=== PATIENT | female | born 1975 | race Caucasian/White ===

== ENCOUNTER 2016-12-27 05:51 | Inpatient (IN) | payer OTHER ==
[2016-12-27] VITALS (10 sets, daily range): BP systolic 101–1225; BP diastolic 54–83
--- NOTE | 2016-12-27 11:00 | NUR ---
Pt's brother(Hunter Adkins) called in & told RN that He had to called CPS to report about his sister(Domingo Menjivar)'s drug history noted. then told RN that Pt had imprisonment for drug R/T charges,forgery etc till last October noted. CPS, Shanae Lincoln ( ) called in to talk/Ask RN about pt's status etc noted. And DR Nguyen & Dr Vogt both been reported noted.
--- NOTE | 2016-12-27 13:30 | NUR ---
Pt moved to post room, #319, via ambulation. Tolerated well.
--- NOTE | 2016-12-27 14:25 | NUR ---
CPS Imelda Santoyo, [employer] teacher( ) is here & visited Pt for about 20 Mins. And asked RN to contact CPS before DC baby noted.
--- NOTE | 2016-12-27 16:06 | NUR ---
ASSUMED CARE, ASSESSMENT COMPLETED, INFORMED HER WHY BABY HAD A URINE BAG ON, VSS, IV CHANGED TO HL
--- NOTE | 2016-12-27 18:40 | NUR ---
BABY HAS NOT BREAST FEED SINCE 1300, PT ATTEMPTED X 2, DID SKIN TO SKIN AND TRY AGAIN, BABY SLEEPY
--- NOTE | 2016-12-28 07:17 | NUR ---
Domingo has been very cuddly and tuned into baby tonight. Large nipples but baby latches well.
[2016-12-28 09:00] VITALS: BP 105/69
--- NOTE | 2016-12-28 13:29 | Provider's Discharge Care Plan ---
Problem, Goal, Plan Problem List 1. Term delivered Goals: Improved health/wellness Instructions: Take meds as directed, INGRID pack as directed control as discussed. Pelvic rest x 6 weeks.
[2016-12-28 16:00] VITALS: BP 117/75
--- NOTE | 2016-12-28 18:25 | NUR ---
Pt has DC'd @4100 noted.
--- NOTE | 2016-12-28 18:26 | NUR ---
Pt was given DC instructions & F/U infoss. indicated understood. Pt will stay as guest while her new born baby boy is staying. Currently the new born is on WADE for possible withdrawal of drugs noted.
== END 2016-12-28 18:05 | disposition home or self-care (01) | DRG 560 ==
LOC: OBC SRH 05:51 → OB SRH 06:04
PROVIDERS: ADMIT Obstetrics & Gynecology
PROC: 0KQM0ZZ Repair Perineum Muscle, Open Approach (ICD-10-PCS; principal; 2016-12-27)
PROC: 10E0XZZ Delivery of Products of Conception, External Approach (ICD-10-PCS; principal; 2016-12-27)
DX: O70.1 Second degree perineal laceration during delivery (principal); Z37.0 Single live birth; O24.420 Gestational diabetes mellitus in childbirth, diet controlled; Z3A.38 38 weeks gestation of pregnancy; O99.323 Drug use complicating pregnancy, third trimester; F12.90 Cannabis use, unspecified, uncomplicated
CPT/HCPCS: 40011; 83411; 83475; 83501; 84038; 90001; 90004; 90074; 90155; 91004; 92760; 92761; 92762; 92763; 92764; 92765; 92766; 92767; 95059